=== PATIENT | male | born 1985 | race Caucasian/White ===

== ENCOUNTER 2022-09-13 05:27 | Day surgery (SDC) | payer OTHER ==
[~2022-09-13] VITALS: Ht 190.5 cm; Wt 111.1 kg
[2022-09-13] VITALS (245 sets, daily range): BP systolic 81–130; BP diastolic 38–101
--- NOTE | 2022-09-13 07:00 | NUR ---
PT ARRIVES AMBULATORY WITH AND SON IN NO ACUTE DISTRESS. DISCUSSED POC. VSS. ORIENTED TO ROOM, BED IN LOW POSITION AND LOCKED. CHANGED INTO GOWN AND VITALS OBTAINED. NOTIFIED DR ARGUETA FOR ORDERS.
[2022-09-13 07:31] LABS: BASO% 0.3 % (0-3); EOS% 1.8 % (0-8); HEMOGLOBIN 16.5 g/dl (14.0-18.0); IMMATURE GRANULOCYTES 0.3 % (0.0-5.0); MEAN CELL VOLUME 88.5 fL CALC (80.0-100.0); MEAN CORPUSCULAR HGB 29.2 pG CALC (26.0-32.0); NEUT# 3.29 thou/uL (1.82-7.42); NEUT% 50.6 % (42-76); RED BLOOD COUNT 5.65 mill/uL (4.70-6.10)
[2022-09-13 07:51] LABS: ALKALINE PHOSPHATASE 58 u/l (38-126); ANION GAP 14 (6-22 (CALC)); BILIRUBIN, TOTAL 0.4 mg/dL (0.2-1.3); BUN 15 mg/dL (9-20); BUN/CREATININE RATIO 16 (12-20 (CALC)); CARBON DIOXIDE 27 mmol/l (22-30); CHLORIDE 106 mmol/l (95-108); CREATININE 0.9 mg/dL (0.7-1.3); GFR FOR AFR.AMER. > 60 ML/MIN (>=60 (CALC)); GFR OTHER RACES > 60 ML/MIN (>=60 (CALC)); POTASSIUM 4.1 mmol/l (3.5-5.1); SGOT/AST 35 u/l (17-59); SODIUM 143 mmol/l (137-146); TOTAL PROTEIN 7.4 g/dL (6.3-8.2)
--- NOTE | 2022-09-13 08:00 | NUR ---
OBTAINED IV X1 RT FOREARM WITH ASSIST OF ULTRASOUND,DISCUSSED POSSIBLE NEED FOR CENTRAL LINE INSERTION D/T HX OF IV DRUG USE, PT AGREEABLE AND CONSENTS SIGNED.
[2022-09-13] MEDS ORDERED: AMBIEN5 MG PO (09:08)
[2022-09-13] MEDS ORDERED: KLONOPIN1 MG PO ×2 (09:08→10:06)
--- NOTE | 2022-09-13 12:15 | NUR ---
Induction Note Patient to [facility] procedure room. Time out performed at 1215. Patient placed on monitors, Anjelica hugger, bilateral wrist restraints applied for ET tube protection. Versed 5mg given IV push at 1216 Tourniquet applied to RIGHT arm Lidocaine 100mg given at 1217 IV push followed by Rocoronium 10mg at 1218 IV push and held for 90 seconds. Propofol bolus of 200mg given at 1220 IV push. Succinylcholine 80mg given IV push at 1221. Smooth intubation with 7.5 ETT. Positive CO2. Positive Auscultation for air exchange. Patient placed on ventilator for spontaneous ventilation. Placed on Propofol IV drip at 1222. OG inserted. Positive air on auscultation. Positive gastric content. Stomach washed at this time.
--- NOTE | 2022-09-13 12:35 | NUR ---
OG close note Stomach washed at this time. Naltrexone 50 mg with Clonidine 0.1 mg via OG tube. OG will be clamped for 45 minutes.
--- NOTE | 2022-09-13 13:50 | NUR ---
OG open note OG open at this time. Gastric content draining into drainage bag. OG to drain for 45 minutes. Propofol will be titrated down based on patient.
--- NOTE | 2022-09-13 14:35 | NUR ---
OG close note Stomach washed at this time. Naltrexone 50 mg with Clonidine 0.1 mg via OG tube. OG will be clamped for 45 minutes. F/c inserted for bladder distention. drained 2000cc clear yellow urine.
--- NOTE | 2022-09-13 16:00 | NUR ---
OG close note Stomach washed at this time. Naltrexone 50 mg with Clonidine 0.1 mg via OG tube. OG will be clamped for 45 minutes.
[2022-09-13] MEDS ORDERED: NALTREXONE50 MG PO (16:08)
[2022-09-13] MEDS ORDERED: CLONIDINE0.1 MG PO (16:08)
[2022-09-13] MEDS ORDERED: KLONOPIN2 MG PO (16:09)
--- NOTE | 2022-09-13 17:30 | NUR ---
OG close note Stomach washed at this time. Naltrexone 25 mg with Clonidine 0.1 mg via OG tube. OG will be clamped for 45 minutes.
--- NOTE | 2022-09-13 19:17 | NUR ---
Extubation note Closing medications given Benadryl 50mg IV push, Decadron 10mg IV push,Magnesium 4 grams IV, Zofran 8mg IV push, Octreotide 100mcg SC. Stomach washed out prior to extubation. Suctioned gastric content. OG removed. Patient extubated. Propofol Discontinued. Wrist restraints removed. Anjelica hugger Removed. See [facility] Moderate sedate recovery record for further notes and assessment.
--- NOTE | 2022-09-13 20:10 | NUR ---
RECEIVED PATIENT TO ROOM 287. RESTING, EYES CLOSED. VSS, 2L/NC. BEDSIDE REPORT RECEIVED FROM AMEYA ABDALLA. NO DISTRESS NOTED AT THIS TIME. BED IN LOW POSITION, LOCKED AND ALARM ACTIVATED.
--- NOTE | 2022-09-13 20:15 | NUR ---
TRANSPORTED PT TO [place] VIA STRETCHER IN NO APPARENT DISTRESS, MOVING ABOUT IN BED, RESPIRATIONS EVEN AND UNLABORED. BEDSIDE REPORT TO AMEYA WRAY
--- NOTE | 2022-09-13 21:30 | NUR ---
PATIENT AWAKE, ALERT AND ORIENTED. ASSESSMENT COMPLETE. USED URINAL INDEPENDENTLY 700ML CLEAR YELLOW URINE NOTED. OFFERED FLUIDS TOLERATED WELL. DENIES PAIN, NO DISTRESS NOTED. CALL LIGHT WITHIN REACH, INSTRUCTED TO CALL FOR ASSISTANCE.
[2022-09-14 03:39] VITALS: BP 109/57
[2022-09-14 06:03] LABS: BASO% 0.1 % (0-3); HEMOGLOBIN 14.7 g/dl (14.0-18.0); IMMATURE GRANULOCYTES 0.1 % (0.0-5.0); LYMPH% 9.9 % (15-41); MEAN CELL VOLUME 88.4 fL CALC (80.0-100.0); MEAN CORPUSCULAR HGB 29.8 pG CALC (26.0-32.0); MEAN CORPUSCULAR HGB CONC 33.7 g/dL CAL (32.0-36.0); NEUT# 6.12 thou/uL (1.82-7.42); NEUT% 87.9 % (42-76); RED BLOOD COUNT 4.93 mill/uL (4.70-6.10); RED CELL DISTRI WIDTH 11.9 % (11.5-15.5)
[2022-09-14 06:13] LABS: HEMATOCRIT 43.6 % (39.0-50.0)
[2022-09-14 06:17] LABS: ALBUMIN 4.3 g/dL (3.2-5.0); ALKALINE PHOSPHATASE 54 u/l (38-126); ANION GAP 13 (6-22 (CALC)); BUN 11 mg/dL (9-20); BUN/CREATININE RATIO 12 (12-20 (CALC)); CARBON DIOXIDE 25 mmol/l (22-30); CHLORIDE 109 mmol/l (95-108); CREATININE 0.9 mg/dL (0.7-1.3); GFR FOR AFR.AMER. > 60 ML/MIN (>=60 (CALC)); GFR OTHER RACES > 60 ML/MIN (>=60 (CALC)); POTASSIUM 3.8 mmol/l (3.5-5.1); SGOT/AST 37 u/l (17-59); SODIUM 143 mmol/l (137-146); TOTAL PROTEIN 6.4 g/dL (6.3-8.2)
--- NOTE | 2022-09-14 06:19 | NUR ---
PATIENT AWAKE AND ALERT. AMBULATORY WITH STEADY GAIT TO SHOWER.
[2022-09-14 06:30] LABS: BILIRUBIN, TOTAL 0.1 mg/dL (0.2-1.3)
[2022-09-14 07:49] VITALS: BP 104/40
--- NOTE | 2022-09-14 08:00 | NUR ---
RECEIVED REPORT FROM KAMALA HOU 07:00. BEDSIDE REPORT. PATIENT RESTING RESTLESS PLEASANT AT THIS TIME. NO DISTRESS NOTED AT THIS TIME. BED IN LOW POSITION. ALARM ON. SAFETY AND FALL PRECAUTION IN PLACE. CALL LIGHT WITHIN REACH.
[2022-09-14 08:15] VITALS: BP 104/40
--- NOTE | 2022-09-14 09:00 | NUR ---
Pt up ambulating in room with steady gait. Pt c/o low back discomfort, encouraged to move around and ambulate, pt agreeable and primary nurse Brando notified for medications. Pt states I feel really great, I dont want to wait until 4pm to go home. Pt adament that he would like to go home sooner. Advised pt MD would arrive shortly and assess him and discusss options for dc. Pt agreeable.
--- NOTE | 2022-09-14 10:30 | NUR ---
Dr Rizo at bedside to assess pt. Pt requested to go home as well.
--- NOTE | 2022-09-14 10:35 | NUR ---
Dr. Rizo visits the patient, referring that he can be discharged early. He issues a verbal command to remove the center line. Which is done under sterile measures. Patient tolerates. free of bleeding and pain.
--- NOTE | 2022-09-14 12:12 | NUR ---
PATIENT RESTING IN BE. STABLE AT THIS TIME.
--- NOTE | 2022-09-14 12:40 | NUR ---
Discharge instructions given. Patient verbalizes understanding of same. Discharged in stable condition via Wheelchair to Home with staff. All belongings sent with pt.
--- NOTE | 2022-09-14 13:08 | NUR ---
PT AMBULATED DOWNSTAIRS WITH STEADY GAIT WITH STAFF AND AND SON. PT ALERT AND CONVERSIVE APPROPRIATE. DISCUSSED DC INSTRUCTIONS AT LENGTH WITH PT AND FAMILY ALL QUESTIONS ANSWERED. 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 TEARFUL AND STATES "I CANT BELIEVE HOW GOOD HE FEELS" . DISCHARGE MEDICATIONS DISCUSSED AND MEDS GIVEN TO . PT LEFT AMBULATORY WITH STEADY GAIT AFTER REVIEW OF [facility] DC PACKET. VERIFIED ALL IVS HAVE BEEN REMOVED. PT AND HIGGED STAFF AND THANKED US FOR CARE.
== END 2022-09-14 12:37 | disposition home or self-care (01) | DRG 897 ==
LOC: MS2 05:27 → ANR 05:27
PROVIDERS: ATTEND Anesthesiology Critical Care Medicine
DX: F11.20 Opioid dependence, uncomplicated (principal)
CPT/HCPCS: J0131; J2354; J3475